=== PATIENT | female | born 1985 | race Asian ===

== ENCOUNTER 2017-02-03 09:12 | Emergency (ER) | payer SELFPAY ==
[~2017-02-03] VITALS: Ht 154.9 cm; Wt 69.2 kg
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
--- NOTE | 2017-02-03 09:29 | NUR ---
URINE OBTAINED AND SENT TO LAB.
--- NOTE | 2017-02-03 09:45 | NUR ---
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
--- NOTE | 2017-02-03 10:15 | NUR ---
SLING APPLIED TO RIGHT ARM.
[2017-02-03] MEDS ORDERED: HYDROCODONE/APAP 5/325MG 1 EACH TABLET ONE (10:28)
[2017-02-03] MEDS ORDERED: HYDROCODONE/APAP 5/325MG 1 EACH TABLET PO ONE (10:30)
[2017-02-03 10:34] VITALS: BP 128/86
--- NOTE | 2017-02-03 10:35 | NUR ---
Patient discharged to home in stable condition. Written and verbal after care instructions given. Patient verbalizes understanding of instruction.
== END 2017-02-03 10:35 | disposition home or self-care (01) ==
LOC: ER 09:13
DX: S42.001A Fracture of unspecified part of right clavicle, initial encounter for closed fracture (principal); V49.59XA Passenger injured in collision with other motor vehicles in traffic accident, initial encounter; Y93.89 Activity, other specified; Y92.413 State road as the place of occurrence of the external cause; Y99.8 Other external cause status
CPT/HCPCS: 73030-TC; 84703-TC; A4606; Z7610